=== PATIENT | male | born 1965 | race Two or more races ===

== ENCOUNTER 2021-10-01 08:11 | Outpatient (REF) | payer MEDICARE, MEDICAID, SELFPAY ==
--- NOTE | ~2021-10-01 | XR_ITS ---
EXAMINATION: XR FOOT, RIGHT CLINICAL INFORMATION: Right foot pain. COMPARISON: None TECHNIQUE: AP, lateral, and oblique views of the right foot. FINDINGS: There is no evidence of acute fracture or dislocation. There is some mild narrowing of the distal interphalangeal joints of the 2nd, 3rd, and 4th toes. There is some mild spurring about the 4th metatarsophalangeal joint without joint space narrowing. Small calcaneal spurs are present. No significant soft tissue swelling is appreciated. XR/XR foot RT min 3V IMPRESSION: Mild degenerative change without evidence of acute fracture or dislocation.
[2021-10-01 08:34] LABS: MANUAL DIFF FLAG NO
[2021-10-01 08:54] LABS: Basophils Percent Auto 0.4 % (0-2); Eosinophils Absolute Auto 0.1 X10*3/uL (0.0-0.4); Eosinophils Percent Auto 1.2 % (0-4); Hematocrit 46.3 % (42.0-52.0); Hemoglobin 15.4 g/dl (14.0-18.0); Imm Gran Abs Auto 0.03 X10*3/uL (0.00-0.03); Imm Gran Pct Auto 0.4 % (0.0-0.4); Lymphocytes Percent Auto 36.8 % (20-40); Mean Corpuscular HGB Conc 33.3 g/dl (31.0-36.0); Mean Corpuscular Volume 96.1 fL (80.0-98.0); Mean Platelet Volume 11.6 fL (9.4-12.4); Monocytes Absolute Auto 0.8 X10*3/uL (0.1-1.2); Neutrophils Absolute Auto 4.2 x10*3/uL (2.0-8.3); Neutrophils Percent Auto 51.2 % (45-73); Platelet Count 147 X10*3/uL (160-400); Red Blood Count 4.82 X10*6/uL (4.60-5.80); Red Cell Distribution Width 11.9 % (11.0-16.0); White Blood Count 8.1 X10*3/uL (4.8-10.8)
[2021-10-01 09:01] LABS: Estimated Average Glucose 246 mg/dL; Hemoglobin A1c % 10.2 %
[2021-10-01 09:21] LABS: Alanine Aminotransferase 100 U/L (0-40); Albumin Level 4.3 g/dL (3.5-5.0); Alkaline Phosphatase 62 U/L (39-117); Anion Gap 11 (12-20); Aspartate Amino Transferase 71 U/L (5-37); Bilirubin Total 0.5 mg/dL (0.0-1.0); Blood Urea Nitrogen 14 mg/dL (9-16); Calcium 10.1 mg/dL (8.4-10.2); Carbon Dioxide 28 mmol/L (22-29); Chloride 110 mmol/L (96-108); Cholesterol 215 mg/dL; Estimated Glomerular Filt Rate > 60; Glucose Random 171 mg/dL (60-115); HDL Cholesterol 35 mg/dL; Potassium 4.2 mmol/L (3.3-5.1); Sodium 145 mmol/L (135-145); Triglycerides 420 mg/dL
[2021-10-01 10:43] LABS: Microalbum/Creatinine Ratio Ur 12.5 ug/mg cr
== END 2021-10-01 08:12 | disposition home or self-care (01) ==
LOC: HO.LAB 08:11
PROVIDERS: Visit Provider Internal Medicine
DX: M79.672 Pain in left foot (principal); E11.9 Type 2 diabetes mellitus without complications; E78.1 Pure hyperglyceridemia; R74.01 Elevation of levels of liver transaminase levels
CPT/HCPCS: 36415; 73630; 80053; 80061; 82043; 83036; 85025

== ENCOUNTER 2022-01-12 11:34 | Outpatient (REF) | payer OTHER, SELFPAY ==
--- NOTE | ~2022-01-12 | XR_ITS ---
EXAMINATION: XR BILATERAL KNEES: 4 VIEWS CLINICAL INFORMATION: Osteoarthritis COMPARISON: None TECHNIQUE: Weightbearing AP, lateral and tunnel views of each knee, with a sunrise views of each knee XR/XR knee RT 4V FINDINGS/IMPRESSION: Left knee: No acute fracture or dislocation. Small tricompartmental marginal osteophytes present. Mild medial tibiofemoral compartment joint space narrowing. Articular surfaces are smooth. Quadriceps and patellar tendon enthesopathy. Trace joint effusion. Right knee: No acute fracture or dislocation. Bipartite patella. Prominent marginal osteophytes along the patella. Small marginal osteophytes along the medial lateral tibiofemoral compartments. Quadriceps and patellar tendon enthesopathy. Trace joint effusion.
--- NOTE | ~2022-01-12 | XR_ITS ---
EXAMINATION: XR BILATERAL KNEES: 4 VIEWS CLINICAL INFORMATION: Osteoarthritis COMPARISON: None TECHNIQUE: Weightbearing AP, lateral and tunnel views of each knee, with a sunrise views of each knee XR/XR knee LT 4V FINDINGS/IMPRESSION: Left knee: No acute fracture or dislocation. Small tricompartmental marginal osteophytes present. Mild medial tibiofemoral compartment joint space narrowing. Articular surfaces are smooth. Quadriceps and patellar tendon enthesopathy. Trace joint effusion. Right knee: No acute fracture or dislocation. Bipartite patella. Prominent marginal osteophytes along the patella. Small marginal osteophytes along the medial lateral tibiofemoral compartments. Quadriceps and patellar tendon enthesopathy. Trace joint effusion.
[2022-01-12 12:32] LABS: Estimated Average Glucose 189 mg/dL; Hemoglobin A1c % 8.2 %
[2022-01-12 13:18] LABS: Alanine Aminotransferase 82 U/L (0-40); Albumin Level 4.3 g/dL (3.5-5.0); Alkaline Phosphatase 59 U/L (39-117); Anion Gap 13 (12-20); Aspartate Amino Transferase 82 U/L (5-37); Bilirubin Total 0.5 mg/dL (0.0-1.0); Blood Urea Nitrogen 16 mg/dL (9-16); Calcium 9.8 mg/dL (8.4-10.2); Carbon Dioxide 25 mmol/L (22-29); Chloride 106 mmol/L (96-108); Cholesterol 193 mg/dL; Estimated Glomerular Filt Rate > 60; Glucose Random 195 mg/dL (60-115); HDL Cholesterol 33 mg/dL; Potassium 4.4 mmol/L (3.3-5.1); Sodium 140 mmol/L (135-145); Total Protein 7.3 g/dL (6.5-8.0); Triglycerides 482 mg/dL
== END 2022-01-12 11:35 | disposition home or self-care (01) ==
LOC: HO.XRAY 11:34
PROVIDERS: PCP Internal Medicine; Visit Provider Internal Medicine
DX: M17.0 Bilateral primary osteoarthritis of knee (principal); E11.65 Type 2 diabetes mellitus with hyperglycemia; E78.2 Mixed hyperlipidemia; R74.01 Elevation of levels of liver transaminase levels
CPT/HCPCS: 36415; 73564; 80053; 80061; 83036

== ENCOUNTER 2022-07-14 07:51 | Outpatient (REF) | payer OTHER, SELFPAY ==
[2022-07-14 10:10] LABS: Estimated Average Glucose 169 mg/dL; Hemoglobin A1c % 7.5 %
[2022-07-14 10:30] LABS: Alanine Aminotransferase 74 U/L (0-40); Albumin Level 4.3 g/dL (3.5-5.0); Alkaline Phosphatase 68 U/L (39-117); Anion Gap 15 (12-20); Aspartate Amino Transferase 71 U/L (5-37); Bilirubin Total 0.4 mg/dL (0.0-1.0); Blood Urea Nitrogen 20 mg/dL (9-16); Calcium 9.4 mg/dL (8.4-10.2); Carbon Dioxide 25 mmol/L (22-29); Chloride 111 mmol/L (96-108); Cholesterol 214 mg/dL; Estimated Glomerular Filt Rate 56; Glucose Random 139 mg/dL (60-115); HDL Cholesterol 34 mg/dL; Potassium 4.6 mmol/L (3.3-5.1); Sodium 146 mmol/L (135-145); Total Protein 7.3 g/dL (6.5-8.0); Triglycerides 584 mg/dL
[2022-07-14 10:57] LABS: Vitamin B12 347 pg/mL (200-900)
== END 2022-07-14 07:52 | disposition home or self-care (01) ==
LOC: HO.LAB 07:51
PROVIDERS: PCP Internal Medicine; Visit Provider Internal Medicine
DX: E11.65 Type 2 diabetes mellitus with hyperglycemia (principal); E78.2 Mixed hyperlipidemia; Z68.31 Body mass index [BMI] 31.0-31.9, adult; Z72.0 Tobacco use
CPT/HCPCS: 36415; 80053; 80061; 82607; 83036

== ENCOUNTER 2022-10-06 07:06 | Outpatient (REF) | payer OTHER, SELFPAY ==
[2022-10-06 07:19] LABS: MANUAL DIFF FLAG NO
[2022-10-06 07:27] LABS: Basophils Percent Auto 0.5 % (0-2); Eosinophils Absolute Auto 0.1 X10*3/uL (0.0-0.4); Eosinophils Percent Auto 1.2 % (0-4); Hematocrit 40.3 % (42.0-52.0); Hemoglobin 12.9 g/dl (14.0-18.0); Imm Gran Abs Auto 0.03 X10*3/uL (0.00-0.03); Imm Gran Pct Auto 0.4 % (0.0-0.4); Lymphocytes Absolute Auto 2.8 X10*3/uL (1.2-4.9); Lymphocytes Percent Auto 37.9 % (20-40); Mean Corpuscular Volume 96.9 fL (80.0-98.0); Mean Platelet Volume 11.1 fL (9.4-12.4); Monocytes Absolute Auto 0.7 X10*3/uL (0.1-1.2); Monocytes Percent Auto 9.8 % (2-11); Neutrophils Absolute Auto 3.7 x10*3/uL (2.0-8.3); Neutrophils Percent Auto 50.2 % (45-73); Platelet Count 136 X10*3/uL (160-400); Red Blood Count 4.16 X10*6/uL (4.60-5.80); Red Cell Distribution Width 12.9 % (11.0-16.0); White Blood Count 7.3 X10*3/uL (4.8-10.8)
[2022-10-06 07:57] LABS: Estimated Average Glucose 151 mg/dL; Hemoglobin A1c % 6.9 %
[2022-10-06 08:09] LABS: Alanine Aminotransferase 81 U/L (0-40); Albumin Level 4.1 g/dL (3.5-5.0); Alkaline Phosphatase 63 U/L (39-117); Anion Gap 10 (12-20); Aspartate Amino Transferase 71 U/L (5-37); Bilirubin Total 0.5 mg/dL (0.0-1.0); Blood Urea Nitrogen 18 mg/dL (9-16); Calcium 8.9 mg/dL (8.4-10.2); Carbon Dioxide 25 mmol/L (22-29); Chloride 115 mmol/L (96-108); Cholesterol 182 mg/dL; Estimated Glomerular Filt Rate 58; Glucose Random 110 mg/dL (60-115); HDL Cholesterol 31 mg/dL; Potassium 4.4 mmol/L (3.3-5.1); Prostate Specific Antigen Scr 2.32 ng/mL (<0.05-4.0); Sodium 146 mmol/L (135-145); Total Protein 6.8 g/dL (6.5-8.0); Triglycerides 521 mg/dL
[2022-10-06 10:08] LABS: Creatinine Urine 199.39 mg/dL; Microalbum/Creatinine Ratio Ur 5.5 ug/mg cr
== END 2022-10-06 07:07 | disposition home or self-care (01) ==
LOC: HO.LAB 07:06
PROVIDERS: PCP Internal Medicine; Visit Provider Internal Medicine
DX: Z12.5 Encounter for screening for malignant neoplasm of prostate (principal); E11.65 Type 2 diabetes mellitus with hyperglycemia; E78.2 Mixed hyperlipidemia; M51.16 Intervertebral disc disorders with radiculopathy, lumbar region; Z72.0 Tobacco use
CPT/HCPCS: 36415; 80053; 80061; 82043; 83036; 84153; 85025

== ENCOUNTER 2023-01-04 09:47 | Outpatient (REF) | payer OTHER, SELFPAY ==
[2023-01-04 10:57] LABS: Estimated Average Glucose 197 mg/dL; Hemoglobin A1c % 8.5 %
[2023-01-04 11:28] LABS: Alanine Aminotransferase 122 U/L (0-40); Albumin Level 4.3 g/dL (3.5-5.0); Alkaline Phosphatase 68 U/L (39-117); Anion Gap 15 (12-20); Aspartate Amino Transferase 126 U/L (5-37); Bilirubin Total 0.9 mg/dL (0.0-1.0); Blood Urea Nitrogen 22 mg/dL (9-16); Calcium 9.9 mg/dL (8.4-10.2); Carbon Dioxide 25 mmol/L (22-29); Chloride 108 mmol/L (96-108); Cholesterol 219 mg/dL; Estimated Glomerular Filt Rate > 60; Glucose Random 160 mg/dL (60-115); HDL Cholesterol 39 mg/dL; LDL Cholesterol Calculated 107 mg/dl; Potassium 4.4 mmol/L (3.3-5.1); Sodium 144 mmol/L (135-145); Total Protein 7.1 g/dL (6.5-8.0); Triglycerides 368 mg/dL
[2023-01-04 12:04] LABS: Folate 16.5 ng/mL (> or = 4.0); Thyroid Stimulating Hormone 1.85 uIU/mL (0.32-4.0); Vitamin B12 523 pg/mL (200-900)
== END 2023-01-04 09:48 | disposition home or self-care (01) ==
LOC: HO.10HDL 09:47
PROVIDERS: Visit Provider Internal Medicine
DX: Z00.00 Encounter for general adult medical examination without abnormal findings (principal); E11.9 Type 2 diabetes mellitus without complications; E78.1 Pure hyperglyceridemia; R74.01 Elevation of levels of liver transaminase levels; Z72.0 Tobacco use
CPT/HCPCS: 36415; 80053; 80061; 82607; 82746; 83036; 84443

== ENCOUNTER 2023-04-05 07:17 | Outpatient (REF) | payer OTHER, SELFPAY ==
[2023-04-05 08:06] LABS: Estimated Average Glucose 180 mg/dL; Hemoglobin A1c % 7.9 %
[2023-04-05 08:44] LABS: Alanine Aminotransferase 119 U/L (0-40); Alkaline Phosphatase 75 U/L (39-117); Anion Gap 14 (12-20); Aspartate Amino Transferase 108 U/L (5-37); Bilirubin Total 0.7 mg/dL (0.0-1.0); Blood Urea Nitrogen 18 mg/dL (9-16); Calcium 9.9 mg/dL (8.4-10.2); Carbon Dioxide 23 mmol/L (22-29); Chloride 110 mmol/L (96-108); Cholesterol 207 mg/dL; Estimated Glomerular Filt Rate > 60; Glucose Random 163 mg/dL (60-115); HDL Cholesterol 35 mg/dL; Potassium 4.1 mmol/L (3.3-5.1); Sodium 143 mmol/L (135-145); Total Protein 7.1 g/dL (6.5-8.0); Triglycerides 566 mg/dL
== END 2023-04-05 07:18 | disposition home or self-care (01) ==
LOC: HO.LAB 07:17
PROVIDERS: PCP Internal Medicine; Visit Provider Internal Medicine
DX: E11.65 Type 2 diabetes mellitus with hyperglycemia (principal); E78.2 Mixed hyperlipidemia; G44.209 Tension-type headache, unspecified, not intractable; R74.01 Elevation of levels of liver transaminase levels
CPT/HCPCS: 36415; 80053; 80061; 83036

== ENCOUNTER 2023-07-07 10:33 | Outpatient (REF) | payer OTHER, SELFPAY ==
[2023-07-07 11:29] LABS: Estimated Average Glucose 189 mg/dL; Hemoglobin A1c % 8.2 % (<6.0)
[2023-07-07 11:46] LABS: Alanine Aminotransferase 73 U/L (0-40); Albumin Level 4.2 g/dL (3.5-5.0); Alkaline Phosphatase 76 U/L (39-117); Anion Gap 17 (12-20); Aspartate Amino Transferase 59 U/L (5-37); Bilirubin Total 0.6 mg/dL (0.0-1.0); Blood Urea Nitrogen 15 mg/dL (9-16); Calcium 9.3 mg/dL (8.4-10.2); Carbon Dioxide 22 mmol/L (22-29); Chloride 108 mmol/L (96-108); Cholesterol 191 mg/dL (<200); Estimated Glomerular Filt Rate > 60; Glucose Random 160 mg/dL (60-115); HDL Cholesterol 39 mg/dL (>40); LDL Cholesterol Calculated 79 mg/dL (<100); Sodium 143 mmol/L (135-145); Total Protein 7.3 g/dL (6.5-8.0); Triglycerides 366 mg/dL (<150)
[2023-07-08 03:36] LABS: HBc Num1 0.08 S/CO (0.00-0.79); HBsAGNum1 0.31 S/CO (0.00-0.99); Hepatitis B Core Antibody Nonreactive (Nonreactive); Hepatitis B Surface Antigen Negative (Negative); ~HepC Num1 0.06 S/CO (0.00-0.79); ~Hepatitis B Surface Antibody NONREACTIVE (Nonreactive); ~Hepatitis C Antibody Nonreactive (Nonreactive)
== END 2023-07-07 10:34 | disposition home or self-care (01) ==
LOC: HO.10HDL 10:33
PROVIDERS: Visit Provider Internal Medicine
DX: E11.65 Type 2 diabetes mellitus with hyperglycemia (principal); E78.1 Pure hyperglyceridemia; R74.01 Elevation of levels of liver transaminase levels; Z72.0 Tobacco use
CPT/HCPCS: 36415; 80053; 80061; 83036; 86704; 86706; 86803; 87340

== ENCOUNTER 2023-10-04 06:32 | Outpatient (REF) | payer OTHER, SELFPAY ==
[2023-10-04 07:36] LABS: Estimated Average Glucose 189 mg/dL; Hemoglobin A1c % 8.2 % (<6.0)
[2023-10-04 07:45] LABS: Alanine Aminotransferase 140 U/L (0-40); Albumin Level 4.3 g/dL (3.5-5.0); Alkaline Phosphatase 86 U/L (39-117); Anion Gap 14 (12-20); Aspartate Amino Transferase 147 U/L (5-37); Bilirubin Total 0.5 mg/dL (0.0-1.0); Blood Urea Nitrogen 19 mg/dL (9-16); Calcium 10.1 mg/dL (8.4-10.2); Carbon Dioxide 24 mmol/L (22-29); Chloride 107 mmol/L (96-108); Cholesterol 252 mg/dL (<200); Estimated Glomerular Filt Rate > 60; Glucose Random 220 mg/dL (60-115); HDL Cholesterol 37 mg/dL (>40); Potassium 4.6 mmol/L (3.3-5.1); Sodium 140 mmol/L (135-145); Total Protein 7.6 g/dL (6.5-8.0); Triglycerides 903 mg/dL (<150)
[2023-10-04 08:18] LABS: Prostate Specific Antigen 2.88 ng/mL (<0.05-4.0)
[2023-10-04 08:45] LABS: Creatinine Urine 34.94 mg/dL; Microalbumin Urine < 5.0 mg/L
== END 2023-10-04 06:33 | disposition home or self-care (01) ==
LOC: HO.LAB 06:32
PROVIDERS: PCP Internal Medicine; Visit Provider Internal Medicine
DX: E11.65 Type 2 diabetes mellitus with hyperglycemia (principal); E78.1 Pure hyperglyceridemia; N40.0 Benign prostatic hyperplasia without lower urinary tract symptoms; R74.01 Elevation of levels of liver transaminase levels; Z12.5 Encounter for screening for malignant neoplasm of prostate; Z72.0 Tobacco use
CPT/HCPCS: 36415; 80053; 80061; 82570; 83036; 84153

== ENCOUNTER 2024-01-03 08:13 | Outpatient (REF) | payer OTHER, SELFPAY ==
[2024-01-03 09:19] LABS: Alanine Aminotransferase 100 U/L (0-40); Albumin Level 4.6 g/dL (3.5-5.0); Alkaline Phosphatase 79 U/L (39-117); Anion Gap 12 (12-20); Aspartate Amino Transferase 45 U/L (5-37); Bilirubin Total 0.5 mg/dL (0.0-1.0); Blood Urea Nitrogen 23 mg/dL (9-16); Carbon Dioxide 26 mmol/L (22-29); Chloride 106 mmol/L (96-108); Cholesterol 206 mg/dL (<200); Estimated Glomerular Filt Rate > 60; Glucose Random 272 mg/dL (60-115); HDL Cholesterol 36 mg/dL (>40); LDL Cholesterol Calculated 109 mg/dL (<100); Potassium 4.3 mmol/L (3.3-5.1); Sodium 140 mmol/L (135-145); Total Protein 7.8 g/dL (6.5-8.0); Triglycerides 309 mg/dL (<150)
[2024-01-03 09:20] LABS: Estimated Average Glucose 223 mg/dL; Hemoglobin A1c % 9.4 % (<6.0)
== END 2024-01-03 08:14 | disposition home or self-care (01) ==
LOC: HO.LAB 08:13
PROVIDERS: PCP Internal Medicine; Visit Provider Internal Medicine
DX: E11.65 Type 2 diabetes mellitus with hyperglycemia (principal); E78.1 Pure hyperglyceridemia; R74.01 Elevation of levels of liver transaminase levels; F10.988 Alcohol use, unspecified with other alcohol-induced disorder
CPT/HCPCS: 36415; 80053; 80061; 83036

== ENCOUNTER 2024-04-29 07:05 | Outpatient (REF) | payer OTHER, SELFPAY ==
[2024-04-29 08:07] LABS: Estimated Average Glucose 200 mg/dL; Hemoglobin A1c % 8.6 % (<6.0)
[2024-04-29 08:33] LABS: Alanine Aminotransferase 103 U/L (0-40); Albumin Level 4.1 g/dL (3.5-5.0); Alkaline Phosphatase 69 U/L (39-117); Anion Gap 14 (12-20); Aspartate Amino Transferase 57 U/L (5-37); Bilirubin Total 0.6 mg/dL (0.0-1.0); Blood Urea Nitrogen 20 mg/dL (9-16); Calcium 9.3 mg/dL (8.4-10.2); Carbon Dioxide 25 mmol/L (22-29); Chloride 110 mmol/L (96-108); Estimated Glomerular Filt Rate > 60; Glucose Random 160 mg/dL (60-115); Potassium 3.9 mmol/L (3.3-5.1); Sodium 145 mmol/L (135-145); Total Protein 6.9 g/dL (6.5-8.0)
== END 2024-04-29 07:06 | disposition home or self-care (01) ==
LOC: HO.LAB 07:05
PROVIDERS: PCP Internal Medicine; Visit Provider Internal Medicine
DX: E11.65 Type 2 diabetes mellitus with hyperglycemia (principal); E78.00 Pure hypercholesterolemia, unspecified; K76.0 Fatty (change of) liver, not elsewhere classified; R93.89 Abnormal findings on diagnostic imaging of other specified body structures
CPT/HCPCS: 36415; 80053; 83036

== ENCOUNTER 2024-08-07 06:51 | Outpatient (REF) | payer OTHER, SELFPAY ==
[2024-08-07 07:37] LABS: Estimated Average Glucose 192 mg/dL; Hemoglobin A1C 260.0283 umol/L; Hemoglobin A1c % 8.3 % (<6.0); Total Hemoglobin (HGBA1C) 3893.3039 umol/L
[2024-08-07 07:53] LABS: Alanine Aminotransferase 143 U/L (0-40); Albumin Level 4.5 g/dL (3.5-5.0); Alkaline Phosphatase 55 U/L (39-117); Anion Gap 15 (12-20); Aspartate Amino Transferase 112 U/L (5-37); Bilirubin Total 0.6 mg/dL (0.0-1.0); Blood Urea Nitrogen 20 mg/dL (9-16); Calcium 9.9 mg/dL (8.4-10.2); Carbon Dioxide 24 mmol/L (22-29); Chloride 108 mmol/L (96-108); Cholesterol 150 mg/dL (<200); Estimated Glomerular Filt Rate > 60; Glucose Random 154 mg/dL (60-115); HDL Cholesterol 37 mg/dL (>40); LDL Cholesterol Calculated 70 mg/dL (<100); Potassium 4.1 mmol/L (3.3-5.1); Sodium 143 mmol/L (135-145); Total Protein 7.5 g/dL (6.5-8.0); Triglycerides 219 mg/dL (<150)
== END 2024-08-07 06:52 | disposition home or self-care (01) ==
LOC: HO.LAB 06:51
PROVIDERS: PCP Internal Medicine; Visit Provider Internal Medicine
DX: E11.641 Type 2 diabetes mellitus with hypoglycemia with coma (principal); I10 Essential (primary) hypertension; I70.313 Atherosclerosis of unspecified type of bypass graft(s) of the extremities with intermittent claudication, bilateral legs; R74.01 Elevation of levels of liver transaminase levels; Z72.0 Tobacco use
CPT/HCPCS: 36415; 80053; 80061; 83036

== ENCOUNTER 2024-11-27 09:26 | Outpatient (REF) | payer OTHER, SELFPAY ==
--- OUTSIDE RECORDS SUMMARY | 2024-11-27 09:47 | XMS_ITS | Clinical Summary ---
Author Organization [employer] [facility] Address [address] [place] [address] Care Team Providers Care Manager Reimbursement Name Role Phone Andie Meeks MD Primary Care Provider Allergies Active Allergy Reactions Criticality Noted Date Comments Penicillins 07/27/2017 Medications No known medications Active Problems Problem Noted Date Diagnosed Date Chronic left shoulder pain 07/27/2017 Adhesive capsulitis of left shoulder 07/27/2017 Partial tear of left rotator cuff 07/27/2017 Family History Medical History Relation Name Comments Diabetes Father Heart disease Father Hypertension Father Diabetes Mother Hypertension Mother Relation Name Status Comments Father Mother Social History Tobacco Use Types Packs/Day Years Used Date Smoking Tobacco: Never Assessed Sex and Gender Information Value Date Recorded Sex Assigned at Not on file Gender Identity Not on file Sexual Orientation Not on file Last Filed Vital Signs Vital Sign Reading Time Taken Comments Blood Pressure - - Pulse - - Temperature - - Respiratory Rate - - Oxygen Saturation - - Inhaled Oxygen Concentration - - Weight 70.3 kg (155 lb) 07/27/2017 8:48 AM EDT Height 165.1 cm (5' 5 ) 07/27/2017 8:48 AM EDT Body Mass Index 25.79 07/27/2017 8:48 AM EDT Plan of Treatment Health Maintenance Due Date Last Done Comments Hepatitis C Screening 1964 COVID-19 Vaccine (#1) 1964 Depression Screening 1976 Preventative Health Evaluation 1982 DTap / Tdap / Td (1 - Tdap) 1983 Colon Cancer Screening (Colonoscopy) 2009 Shingrix-Zoster Vaccine (1 of 2) 2014 Influenza Vaccine (#1) 2024 RSV Adult > 60+ Yrs or Pregn ant (1 - 1-dose 75+ series) 2039 Hepatitis B Vaccines Aged Out No long er eligible based on patient's age to complete this topic Pneumococcal Vaccine Aged Out No long er eligible based on patient's age to complete this topic RSV Ped < 20 months Aged Out No longe r eligible based on patient's age to complete this topic Care Teams Manager Reimbursement Relationship Specialty Start Date End Date Andie Meeks MD [address] [facility] [address] [place] [phone] PCP - General Internal Medicine 07/04/17
[2024-11-27 10:27] LABS: Estimated Average Glucose 197 mg/dL; Hemoglobin A1C 260.3125 umol/L; Hemoglobin A1c % 8.5 % (<6.0); Total Hemoglobin (HGBA1C) 3767.8995 umol/L
[2024-11-27 10:46] LABS: Alanine Aminotransferase 165 U/L (0-40); Albumin Level 3.9 g/dL (3.5-5.0); Alkaline Phosphatase 71 U/L (39-117); Anion Gap 11 (12-20); Aspartate Amino Transferase 129 U/L (5-37); Bilirubin Total 0.3 mg/dL (0.0-1.0); Blood Urea Nitrogen 14 mg/dL (9-16); Calcium 9.6 mg/dL (8.4-10.2); Carbon Dioxide 27 mmol/L (22-29); Chloride 109 mmol/L (96-108); Estimated Glomerular Filt Rate > 60; Glucose Random 159 mg/dL (60-115); Potassium 4.8 mmol/L (3.3-5.1); Sodium 142 mmol/L (135-145); Total Protein 7.9 g/dL (6.5-8.0)
[2024-11-27 10:53] LABS: Prostate Specific Antigen Scr 3.49 ng/mL (<0.05-4.0)
[2024-11-27 10:59] LABS: Creatinine Urine 50.28 mg/dL; Microalbum/Creatinine Ratio Ur 19.8 ug/mg cr (<30)
== END 2024-11-27 09:27 | disposition home or self-care (01) ==
LOC: HO.10HDL 09:26
PROVIDERS: Visit Provider Internal Medicine
DX: E11.65 Type 2 diabetes mellitus with hyperglycemia (principal); I10 Essential (primary) hypertension; I70.313 Atherosclerosis of unspecified type of bypass graft(s) of the extremities with intermittent claudication, bilateral legs; N40.0 Benign prostatic hyperplasia without lower urinary tract symptoms; R74.01 Elevation of levels of liver transaminase levels; Z72.0 Tobacco use; Z12.5 Encounter for screening for malignant neoplasm of prostate
CPT/HCPCS: 36415; 80053; 82043; 82570; 83036; 84153

== ENCOUNTER 2025-02-18 07:55 | Outpatient (REF) | payer OTHER, SELFPAY ==
--- OUTSIDE RECORDS SUMMARY | 2025-02-18 07:58 | XMS_ITS | Clinical Summary ---
Author Organization [employer] [facility] Address [address] [place] [address] Care Team Providers Care Mule Tender Name Role Phone Andie Meeks MD Primary [...] age to complete this topic Care Teams Mule Tender Relationship Specialty Start Date End Date Andie Meeks MD [address] [facility] [address] [place] [phone] PCP - General Internal Medicine 07/04/17
[2025-02-18 09:30] LABS: Estimated Average Glucose 180 mg/dL; Hemoglobin A1C 243.5673 umol/L; Hemoglobin A1c % 7.9 % (<6.0)
[2025-02-18 10:34] LABS: Albumin Level 4.4 g/dL (3.5-5.0); Anion Gap 16 (12-20); Aspartate Amino Transferase 119 U/L (5-37); Bilirubin Total 0.4 mg/dL (0.0-1.0); Blood Urea Nitrogen 17 mg/dL (9-16); Calcium 9.9 mg/dL (8.4-10.2); Carbon Dioxide 26 mmol/L (22-29); Chloride 106 mmol/L (96-108); Estimated Glomerular Filt Rate > 60; Glucose Random 206 mg/dL (60-115); Potassium 4.8 mmol/L (3.3-5.1); Sodium 143 mmol/L (135-145); Total Protein 7.3 g/dL (6.5-8.0)
[2025-02-18 12:52] LABS: Alanine Aminotransferase 136 U/L (0-40); Alkaline Phosphatase 66 U/L (39-117)
== END 2025-02-18 07:56 | disposition home or self-care (01) ==
LOC: HO.LAB 07:55
PROVIDERS: PCP Internal Medicine; Visit Provider Internal Medicine
DX: E11.9 Type 2 diabetes mellitus without complications (principal); I10 Essential (primary) hypertension; I70.313 Atherosclerosis of unspecified type of bypass graft(s) of the extremities with intermittent claudication, bilateral legs; R74.01 Elevation of levels of liver transaminase levels; Z72.0 Tobacco use
CPT/HCPCS: 36415; 80053; 83036

== ENCOUNTER 2025-05-15 09:00 | Outpatient (REF) | payer OTHER, SELFPAY ==
--- OUTSIDE RECORDS SUMMARY | 2025-05-15 09:22 | XMS_ITS | Clinical Summary ---
Author Organization [employer] [facility] Address [address] [place] [address] Care Team Providers Care Group Fitness Assistant Department Head Name Role Phone Andie Meeks MD Primary [...] (1 of 2) 2014 Influenza Vaccine (#1) 2025 RSV Adult > 60+ Yrs or Pregn [...] age to complete this topic Care Teams Group Fitness Assistant Department Head Relationship Specialty Start Date End Date Andie Meeks MD [address] [facility] [address] [place] [phone] PCP - General Internal Medicine 07/04/17
--- OUTSIDE RECORDS SUMMARY | 2025-05-15 09:22 | XMS_ITS | Patient Health Record ---
Author Organization [facility] Address [address] [place] [address] Care Team Providers Care Artist'S Representative Name Role Phone Andie Meeks Primary Care Provider UnavailJames Lopez [phone] Allergies Allergen (clinical drug ingredient) Drug/Non Drug Allergy documented on EMR Reaction Allergy Type Onset Date Status penicillamine Penicillamine Unknown Drug Allergy Active Reason For Referral No Information Plan Of Treatment No Information Insurance Providers Payer Name Payer Address Payer Phone Subscriber Number Group Number Insured Name Patient Relationship to Insured Coverage Start Date Coverage End Date MEDICARE OF [place] [address] [place] [id number] [phone] [id number] DANIS GRAY Self - patient is the insured MEDICAID OF [facility] [address] [place] [address] [id number] DANIS GRAY Self - patient is the insured Medical (General) History Medical History History ICD Code elevated liver funtion tests hyperlipidemia substance abuse alcohol abuse erectioe dysfunction Surgical History Surgery Date(Month/Year) ear surgery
--- OUTSIDE RECORDS SUMMARY | 2025-05-15 09:22 | XMS_ITS | Clinical Summary ---
Author Organization [facility] [address] [facility] Address [address] [place] [address] Phone Care Team Providers Care Sample Builder Name Role Phone Andie Meeks MD Primary Care Provider [phone] Allergies Active Allergy Reactions Criticality Noted Date Comments Nicotine Rash Low 03/05/2025 Penicillins Low 03/05/2025 Sertraline Other Low 03/05/2025 Spaced Out Encounters Date Type Department Care Team Description 04/18/2025 Telephone Pulmonology - [place] [facility] [address] [place] [phone] Milli Chavez [place] insurance (Name on Insurance Correction) 04/17/2025 9:47 AM EDT - 04/17/2025 11:59 PM EDT Hospital Encounter [facility] CT Scan [address] [place] [phone] Encounter for screening for lung cancer; Cigarette smoker Discharge Disposition: Home or Self Care 04/17/2025 9:30 AM EDT Office Visit Lung Screening Program - [place] [address] [phone] Pamella Bustillo PA Tobacco abuse (Primary Dx); Encounter for screening for malignant neoplasm of lung in current smoker with 30 pack year history or greater from Last 3 Months Surgical History Surgery Date Site/Laterality Comments CATARACT EXTRACTION Bilateral SHOULDER ARTHROSCOPY 03/19/2021 Right ROTATOR CUFF REPAIR Right Medical History Medical History Date Comments Depression Osteoarthritis of hip left Diabetes mellitus (CMS/HCC V24, CMS/HCC V28) Dyslipidemia Family History Medical History Relation Name Comments Alcohol abuse Father Diabetes Mother Hyperlipidemia Mother Hypertension Mother Lung cancer Neg Hx Relation Name Status Comments Father Mother Social History Tobacco Use Types Packs/Day Years Used Date Smoking Tobacco: Every Day Cigarettes 1.5 40.6 Started: 1984 Tobacco Cessation:Ready to Q uit: Not Asked; Counseling Given: Not Answered Sex and Gender Information Value Date Recorded Sex Assigned at Not on file Legal Sex Male 8:27 AM EST Gender Identity Not on file Sexual Orientation Not on file Obstetrics History Last Filed Vital Signs Vital Sign Reading Time Taken Comments Blood Pressure - - Pulse - - Temperature 36.6 C (97.9 F) 04/17/2025 9:15 AM EDT Respiratory Rate - - Oxygen Saturation - - Inhaled Oxygen Concentration - - Weight - - Height - - Body Mass Index - - Plan of Treatment Health Maintenance Due Date Last Done Comments DTaP,Tdap,and Td Vaccines (1 - Tdap) 1983 Pneumococcal Vaccine: 50+ Ye ars (1 of 2 - PCV) 1983 Zoster Vaccines (1 of 2) 2014 COVID-19 Vaccine (1 - 2023-2 5 season) 2024 Depression Screening 10/09/2024 Cholesterol Screening (Lipid Panel) 03/01/2025 Colorectal Cancer Screening: Colonoscopy 03/01/2025 HIV Screening 03/01/2025 Hepatitis C Screening 03/01/2025 Medicare Annual Wellness Visit 03/01/2025 Social Influencers of Health Screening 03/01/2025 Influenza Vaccine (#1) 2025 Lung Cancer Screening (Low D ose CT) 04/17/2026 04/17/2025 RSV Immunization Adult Patie nts (1 - 1-dose 75+ series) 2039 HIB Vaccines Aged Out No longer eligi ble based on patient's age to complete this topic HPV Vaccines Aged Out No longer eligi ble based on patient's age to complete this topic Hepatitis A Vaccines Aged Out No long er eligible based on patient's age to complete this topic Hepatitis B Vaccines Aged Out No long er eligible based on patient's age to complete this topic IPV Vaccines Aged Out No longer eligi ble based on patient's age to complete this topic MMR Vaccines Aged Out No longer eligi ble based on patient's age to complete this topic Meningococcal ACWY Vaccine Aged Out N o longer eligible based on patient's age to complete this topic Meningococcal B Vaccine Aged Out No l onger eligible based on patient's age to complete this topic RSV Immunization Patients Un sara 20 months Aged Out No longer eligible b ased on patient's age to complete this topic Varicella Vaccines Aged Out No longer eligible based on patient's age to complete this topic Procedures Procedure Name Priority Date/Time Associated Diagnosis Comments CT LUNG SCREENING Routine 04/17/2025 9:5 8 AM EDT Encounter for screening for lung cancer Cigarette smoker from Last 3 Months Results * CT Lung Screening (04/17/2025 9:58 AM EDT) Anatomical Region Laterality Modality Chest Computed Tomogra phy 04/17/2025 12:1 1 PM EDT Impressions 04/17/2025 12:14 PM EDT No suspicious pulmonary nodules. Lung RADS 1, recommend low-dose screening chest CT in 12 months -------- FINAL REPORT -------- Dictated By: Clarisse Feng Dictated Date: 04/17/2025 12:11 ET Assigned Physician: Clarisse Feng Reviewed and Electronically Signed By: Clarisse Feng Signed Date: 04/17/2025 12:14 ET Workstation ID: [id number] Transcribed By: Self Edit Transcribed Date: 04/17/2025 12:11 ET Narrative 04/17/2025 12:14 PM EDT INDICATION: Currently smoking with 35 pack-year smoking history FINDINGS: Low-dose CT scan of the chest obtained as a lung cancer screening study. Scanner: [employer] speed 64 slice VCT Dose reduction technique: ASIR (Adaptive statistical iterative reconstruction) and/or AEC (automated exposure control) Dose: total exam DLP 114 mGY per cm COMPARISON: No prior studies are available for comparison. Lung: Mild emphysematous changes. No infiltrates or effusions. Mild subpleural fibrotic changes noted along the medial right lower lobe adjacent to thoracic osteophytosis. No suspicious pulmonary nodules or masses. Lymph nodes: No thoracic lymphadenopathy. Mediastinum: Trachea and esophagus are within normal limits. Heart normal in size and shape without pericardial effusion. Mediastinal vascular structures are normal in course and caliber. Bony structures: Within normal limits for the patient's age. Procedure Note Clarisse Feng MD - 04/17/2025 INDICATION: Currently smoking with 35 pack-year smoking history FINDINGS: Low-dose CT scan of the chest obtained as a lung cancerscreening study. Scanner: [employer] speed 64 slice VCT Dose reduction technique: ASIR (Adaptive statistical iterativereconstruction) and/or AEC (automated exposure control) Dose: total exam DLP 114 mGY per cm COMPARISON: No prior studies are available for comparison. Lung: Mild emphysematous changes. No infiltrates or effusions. Mildsubpleural fibrotic changes noted along the medial right lower lobeadjacent to thoracic osteophytosis. No suspicious pulmonary nodules or masses. Lymph nodes: No thoracic lymphadenopathy. Mediastinum: Trachea and esophagus are within normal limits. Heart normalin size and shape without pericardial effusion. Mediastinal vascularstructures are normal in course and caliber. Bony structures: Within normal limits for the patient's age. IMPRESSION: No suspicious pulmonary nodules. Lung RADS 1, recommend low-dose screening chest CT in 12 months -------- FINAL REPORT -------- Dictated By: Clarisse Feng Dictated Date: 04/17/2025 12:11 ET Assigned Physician: Clarisse Feng Reviewed and Electronically Signed By: Clarisse Feng Signed Date: 04/17/2025 12:14 ET Workstation ID: [id number] Transcribed By: Self Edit Transcribed Date: 04/17/2025 12:11 ET Willie Beard MD IM CT PROCEDURES Final Result from Last 3 Months Insurance [facility] MEDICARE Member Subscriber Plan / Payer (Ef fective 2022-Present) Name:STEVO MERCEDES Relation to Subscriber:Self Name:Stevo Mercedes Payer ID:[id number] Group ID:[id number] Type:Not on file Address: [address] [place] [phone] Care Teams Sample Builder Relationship Specialty Start Date End Date Andie Meeks MD [address] [place] [address] [place] [address] PCP - General Internal Medicine 07/04/17
[2025-05-15 10:00] LABS: Hemoglobin A1C 306.4376 umol/L; Total Hemoglobin (HGBA1C) 3939.5867 umol/L
[2025-05-15 10:58] LABS: Albumin Level 4.6 g/dL (3.5-5.0); Alkaline Phosphatase 62 U/L (39-117); Anion Gap 13 (12-20); Aspartate Amino Transferase 115 U/L (5-37); Blood Urea Nitrogen 22 mg/dL (9-16); Calcium 10.1 mg/dL (8.4-10.2); Carbon Dioxide 25 mmol/L (22-29); Chloride 108 mmol/L (96-108); Estimated Glomerular Filt Rate > 60; Potassium 4.2 mmol/L (3.3-5.1); Sodium 142 mmol/L (135-145); Total Protein 7.6 g/dL (6.5-8.0)
[2025-05-15 11:28] LABS: Alanine Aminotransferase 133 U/L (0-40)
== END 2025-05-15 09:01 | disposition home or self-care (01) ==
LOC: HO.LAB 09:00
PROVIDERS: PCP Internal Medicine; Visit Provider Internal Medicine
DX: R74.01 Elevation of levels of liver transaminase levels (principal); E11.65 Type 2 diabetes mellitus with hyperglycemia; I10 Essential (primary) hypertension; Z72.0 Tobacco use
CPT/HCPCS: 36415; 80053; 83036

== ENCOUNTER 2025-08-12 07:07 | Outpatient (REF) | payer OTHER, SELFPAY ==
--- OUTSIDE RECORDS SUMMARY | 2025-08-12 07:11 | XMS_ITS | Patient Health Record ---
Author Organization [facility] Address [address] [place] [address] Care Team Providers Care Services Program Manager Name Role Phone Andie Meeks Primary Care Provider UnavailJames Lopez [phone] Allergies Allergen (clinical drug ingredient) Drug/Non Drug Allergy documented on EMR Reaction Allergy Type Onset Date Status penicillamine Penicillamine Unknown Drug Allergy Active Reason For Referral No Information Plan Of Treatment No Information Insurance Providers Payer Name Payer Address Payer Phone Subscriber Number Group Number Insured Name Patient Relationship to Insured Coverage Start Date Coverage End Date MEDICARE OF [place] [address] [place] [id number] [phone] [id number] DANIS GRAY Self - patient is the insured MEDICAID OF [facility] [address] [place] [address] [id number] DANIS GRAY Self - patient is the insured Medical (General) History Medical History History ICD Code elevated liver funtion tests hyperlipidemia substance abuse alcohol abuse erectioe dysfunction Surgical History Surgery Date(Month/Year) ear surgery
--- OUTSIDE RECORDS SUMMARY | 2025-08-12 07:11 | XMS_ITS | Clinical Summary ---
Author Organization [employer] [facility] Address [address] [place] [address] Care Team Providers Care Compliance Monitor Name Role Phone Andie Meeks MD Primary [...] age to complete this topic Care Teams Compliance Monitor Relationship Specialty Start Date End Date Andie Meeks MD [address] [facility] [address] [place] [phone] PCP - General Internal Medicine 07/04/17
--- OUTSIDE RECORDS SUMMARY | 2025-08-12 07:11 | XMS_ITS | Clinical Summary ---
Author Organization [facility] [address] [facility] [facility] Address [address] [place] [address] Phone Care Team Providers Care Long Wall Shear Operator Name Role Phone Andie Meeks MD Primary Care Provider [phone] Allergies Active Allergy Reactions Criticality Noted Date Comments Nicotine Rash Low 03/05/2025 Penicillins Low 03/05/2025 Sertraline Other Low 03/05/2025 Spaced Out Surgical History Surgery Date Site/Laterality Comments CATARACT EXTRACTION Bilateral SHOULDER ARTHROSCOPY 03/19/2021 Right ROTATOR CUFF REPAIR Right Medical History Medical History Date Comments Depression Osteoarthritis of hip left Diabetes mellitus (CMS/[facility] V24, CMS/[facility] V28) Dyslipidemia Family History Medical History Relation Name Comments Alcohol abuse Father Diabetes Mother Hyperlipidemia Mother Hypertension Mother Lung cancer Neg Hx Relation Name Status Comments Father Mother Social History Tobacco Use Types Packs/Day Years Used Date Smoking Tobacco: Every Day Cigarettes 1.5 40.8 Started: 1984 Tobacco Cessation:Ready to Q uit: [...] Health Maintenance Due Date Last Done Comments Colorectal Cancer Screening: Colonoscopy 1964 DTaP,Tdap,and Td Vaccines (1 - Tdap) 1983 Pneumococcal Vaccine: 50+ Ye ars (1 of 2 - PCV) 1983 Zoster Vaccines (1 of 2) 2014 Depression Screening 10/09/2024 Cholesterol Screening (Lipid Panel) 03/01/2025 HIV Screening 03/01/2025 Hepatitis C Screening 03/01/2025 Medicare Annual Wellness Visit 03/01/2025 Social Influencers of Health Screening 03/01/2025 COVID-19 Vaccine (1 - 2023-2 5 season) 2025 Influenza Vaccine (#1) 2025 Lung Cancer Screening [...] cancer Cigarette smoker from Last 3 Months or Most Recently Relevant to Health Maintenance Results * CT Lung Screening (04/17/2025 9:58 [...] Signed Date: 04/17/2025 12:14 ET Workstation ID: [id number] Transcribed By: Self Edit Transcribed Date: 04/17/2025 12:11 ET Narrative 04/17/2025 12:14 PM EDT INDICATION: Currently smoking with 35 pack-year smoking history FINDINGS: Low-dose CT scan of the chest obtained as a lung cancer screening study. Scanner: [employer] speed 64 slice VCT Dose reduction technique: [...] obtained as a lung cancerscreening study. Scanner: [employer] Bright speed 64 slice VCT Dose reduction technique: [...] Signed Date: 04/17/2025 12:14 ET Workstation ID: [id number] Transcribed By: Self Edit Transcribed Date: 04/17/2025 12:11 ET Willie Beard MD IMG CT PROCEDURES Final Result from Last 3 Months or Most Recently Relevant to Health Maintenance Insurance [facility] MEDICARE Member Subscriber Plan / Payer (Ef fective 2022-Present) Name:STEVO MERCEDES Relation to Subscriber:Self Name:Stevo Mercedes Payer ID:[id number] Group ID:[id number] Type:Not on file Address: [place] [address] [place] [phone] Care Teams Long Wall Shear Operator Relationship Specialty Start Date End Date Andie Meeks MD [address] [place] [address] [place] [address] PCP - General Internal Medicine 07/04/17
--- OUTSIDE RECORDS SUMMARY | 2025-08-12 07:11 | XMS_ITS | Data Portability ---
Author Organization [facility], [facility] Address [address] [place] [address] Care Team Providers Care Business Continuity Global Director Name Role Phone [facility] Primary Care Provider Assessment Encounter Date Assessment Date Assessment LastModified by Organization Details LastModified Time 07/03/2024 07/03/2024 I am seeing the patient today under the supervision of Dr Blue who was available but who did not see the patient. [email or web address] Not available 07/03/2024 06:36:24 09/23/2024 09/23/2024 I am seeing the patient today under the supervision of Dr Blue who was available but who did not see the patient. [email or web address] Not available 09/23/2024 07:26:10 12/25/2024 12/25/2024 I am seeing the patient today under the supervision of Dr Blue who was available but who did not see the patient. qian Not available 12/25/2024 09:29:57 03/26/2025 03/26/2025 I am seeing the patient today under the supervision of Dr Blue who was available but who did not see the patient. qian Not available 03/26/2025 09:58:20 06/30/2025 06/30/2025 I am seeing the patient today under the supervision of Dr. Kowalski who was available but who did not see the patient. HPI: Patient is here today for reevaluation of left hip pain. Has been evaluated by my colleague and diagnosed with osteoarthritis of the hip. Here today for intra-articular hip injection. No new injury or symptom changes. Review of systems: As noted patient intake. Physical exam:The patient is well appearing and in no apparent distress. Alert and oriented x3. Gait is antalgic on the left. Examination of the hip reveals no effusion, erythema, or warmth. No point tenderness over the greater trochanter. Forward flexion to 90. External rotation to 60 internal rotation to 0. + impingement, - straight leg raise. Calf soft and nontender. 5/5 strength with hip flexion/extension. X-ray: 2 views were ordered obtained and independently reviewed at [facility] today. Radiographs demonstrate osteoarthritis of the left hip. No significant advancement from previous radiographs. No evidence of AVN, no acute fracture appreciated. No lytic or blastic lesions noted. Assessment: Osteoarthritis of the left hip Plan: I explained the nature of the diagnosis with the patient and its treatment options both conservative and surgical. Conservative measures were discussed at length including oral antiinflammatories, physical therapy, bracing and injection therapies. Please see the procedure note for further documentation about the injection performed today. Follow-up as needed for re-evaluation, sooner if any difficulty. The patient understands and agrees with the plan. They know to call if they have any further questions or concerns regarding their symptoms, or to follow up sooner if needed. [email or web address] Not available 06/30/2025 08:02:04 Plan of Treatment Reminders Order Date Submit Date Provider Last Modified By Organization Details Last Modified Time Details Appointments RECHECK 15 2024 08:45A Jimmy Alcantara PA-C Not available Not available Not available Lab None recorded . Referral None recorded . Procedures None recorded . Surgeries None recorded . Imaging XR, hip + pelvis, unilater al, 2 or 3 view - rm 205, BL Hips. 3v 2024 025 [email or web address], [address], [address], [place], [address], 07/09/2025 10:01:19 Medication Orders None recorded . Patient TargetsNo targets recorded. Patient InstructionsNo instructions recorded. Reason for Referral None Reported. Results Created Date Observation Date Name Description Value Unit Range Abnormal Flag Note LastModifiedBy Organization Detail LastModifiedTime 06/08/20 24 02/28/2021 imagi ng/di agnos tic resul t No observ ation record ed. [email or web address] Not Available 05/11 04:40:34 06/08/20 24 01/14/2021 imagi ng/di agnos tic resul t No observ ation record ed. [email or web address] Not Available 05/11 04:40:41 06/08/20 24 01/14/2021 imagi ng/di agnos tic resul t No observ ation record ed. [email or web address] Not Available 05/11 04:40:42 06/08/20 24 01/14/2021 imagi ng/di agnos tic resul t No observ ation record ed. [email or web address] Not Available 05/11 04:40:42 06/08/20 24 11/12/2022 imagi ng/di agnos tic resul t No observ ation record ed. [email or web address] Not Available 05/11 04:41:08 06/30/20 25 06/30/2025 XR, hip + pelvi s, unila teral , 2 or 3 view http:/ [email or web address] ?Encry pted=s hAaTro YD8dLq bEUv6g %2BXZw aYqtaq 0bqfl% 2Fg9IQ a4ajBk vP9nXo QUaueC m3YtLR FvZlgJ JJ8mAn HZtai3 6b6457 AC0Klb HqBV6a jKiQtr MwF INTERFACE [address], [place], [address], 06/30/2025 08:54:18 06/30/20 25 06/30/2025 XR, hip + pelvi s, unila teral , 2 or 3 view http:/ [email or web address] ?Encry pted=s hAaTro YD8dLq bEUv6g %2BXZw aYqtaq 0bqfl% 2Fg9IQ a4ajBk vP9nXo QUaueC m3YtLR FvZlgJ JJ8mAn HZtai3 3s6087 AC0Klb HqBV6a jKiQtr MwF INTERFACE [facility] [address], [place], [address], 06/30/2025 08:54:21 Result Notes Documentation Provider Name and Address Organization Details Recorded Time Xr, Hip + Pelvis, Unilateral, 2 Or 3 View : [email or web address] Encrypted=otUzQejMT3xFlxT Uv6g%9GVFumCobtw2onkw%2Fg 7DJq1dtJsaW1vMnVUqzgXk2Vt XBUwLqyEUU4lGqNSden41v768 3ER4WdnBrNF8mwZbDrkJoA Not Available [facility] 06/30/2025 08:54: 19 Xr, Hip + Pelvis, Unilateral, 2 Or 3 View : [email or web address] Encrypted=bfMmUajMV4zHxjW Uv6g%6GTXklUsnom0xdsq%2Fg 5JMs3jpSitJ1yBfMRbcqRo9Oz SYIwNhnBXX3pIySUltc08c309 0QG7RngCoBX3ecIwXmwAuY Not Available [facility] 06/30/2025 08:54: 22 Problems Name Problem SNOMED Code Status Onset Date Resolution Date Notes Provider Name and Address Organization Details Recorded Time Osteoarthr itis of left hip joint 9543024201539 08 Active 2023 Junaid Madison PA-C [address], [place], [address] , [facility] 4 08:03:15 Osteoarthr itis of right hip joint 2253144520346 07 Active 2023 Not Available [facility] 10:26:29 Problem Notes None recorded. Procedures Surgical History Date Name Laterality Status Provider Name and Address Organization Details Recorded Time 06/30/2025 [facility] Benedict Jessica PA-C [address], [place], [address], [facility] 06/30/2025 08:01:32 03/26/2025 [facility] completed Junaid Madison PA-C [address], [place], [address], [facility] 03/26/2025 09:58:15 12/25/2024 [facility] completed Junaid Madison PA-C [address], [place], [address], [facility] 12/25/2024 09:29:53 09/23/2024 [facility] completed Junaid Madison PA-C [address], [place], [address], [facility] 09/23/2024 08:12:01 07/03/2024 [facility] completed Junaid Madison PA-C [address], [place], [address], [facility] 07/03/2024 08:18:34 04/03/2024 [facility] completed Junaid Madison PA-C [address], [place], [address], [facility] 04/03/2024 09:24:33 Imaging Results None recorded. Procedure Notes None recorded. Medical Equipment None Reported. Allergies Allergen ID Allergen Name Allergen Category Reaction Reaction Severity Criticality Documentation Date Start Date Code Code System Note Provider Name and Address Organization Details Recorded Time 22128 Product containin g penicilli n (product) medicatio n Not available Not available Not available 12/11/20232021 60794 8001 SNOMED Not Available [facility] 10:54:06 Medications Name Sig Start Date Stop Date Status Note LastModified by Organization Details LastModified Time atorvastati n 80 mg tablet TAKE 1 TABLET BY MOUTH AT BEDTIME active Not Available Not Available No t Available glipizide ER 10 mg tablet, extended release 24 hr TAKE 1 TABLET BY MOUTH EVERY DAY active Not Available Not Available No t Available aspirin 81 mg tablet,brenda yed release TAKE 1 TABLET BY MOUTH EVERY DAY active Not Available Not Available No t Available losartan 100 mg-hydrochl orothiazide 25 mg tablet TAKE 1 TABLET BY MOUTH DAILY active Not Available Not Available No t Available amitriptyli ne 25 mg tablet TAKE 1 TABLET BY MOUTH AT BEDTIME active Not Available Not Available No t Available metformin 1,000 mg tablet TAKE 1 TABLET BY MOUTH TWICE DAILY active Not Available Not Available No t Available nicotine 21 mg/24 hr daily transdermal patch APPLY ONE PATCH ONTO THE SKIN DAILY active Not Available Not Available No t Available losartan 100 mg tablet TAKE 1 TABLET BY MOUTH DAILY active Not Available Not Available No t Available naproxen 500 mg tablet TAKE 1 TABLET BY MOUTH TWICE DAILY active Not Available Not Available No t Available rosuvastati n 40 mg tablet TAKE 1 TABLET BY MOUTH DAILY active Not Available Not Available No t Available bupropion HCl XL 150 mg 24 hr tablet, extended release TAKE 1 TABLET BY MOUTH DAILY active Not Available Not Available No t Available Janumet 50 mg-1,000 mg tablet active Not Available Not Available Not Available oxycodone HCl-oxycodo ne-ASA as directed 1-2 TABLETS EVERY [address] WHILE ON THIS MEDICATIO N 04/03 completed Statu s: 'Curr ent'; Not Available Not Available Not Available OneTouch Verio test strips TEST TWICE DAILY active Not Available Not Available No t Available Jardiance 25 mg tablet TAKE 1 TABLET BY MOUTH EVERY MORNING active Not Available Not Available No t Available Trulicity 0.75 mg/0.5 mL subcutaneou s pen injector INJECT 0.75 MG SUBCUTANE LOUSLY WEEKLY active Not Available Not Available No t Available OneTouch Verio Flex Meter CHECK BLOOD SUGAR active Not Available Not Available No t Available OneTouch Delica Plus Lancet 30 gauge TEST TWICE DAILY active Not Available Not Available No t Available Vitals Date Recorded Body height Body mass index (BMI) Body weight Provider Name and Address Organization Details Last Updated DateTime 12/25/2024 165.1 cm 30 kg/m2 25915.63 g Cayden Oneil [facility] 12/25/2024 09:13:33 Date Recorded Body height Body mass index (BMI) Body weight Provider Name and Address Organization Details Last Updated DateTime 03/26/2025 165.1 cm 30 kg/m2 60655.63 g Cayden Oneil [facility] 03/26/2025 09:45:43 Date Recorded Body height Body mass index (BMI) Body weight Provider Name and Address Organization Details Last Updated DateTime 06/30/2025 165.1 cm 30 kg/m2 85137.63 g JASPER Calinyenni [facility] 06/30/2025 08:45:13 Date Recorded Body height Body mass index (BMI) Body weight Provider Name and Address Organization Details Last Updated DateTime 07/03/2024 165.1 cm 30 kg/m2 00249.63 g Cayden Luke [facility] 07/03/2024 08:14:31 Date Recorded Body height Body mass index (BMI) Body weight Provider Name and Address Organization Details Last Updated DateTime 09/23/2024 165.1 cm 30 kg/m2 00716.63 g Cayden Luke [facility] 09/23/2024 08:08:18 Social History None recorded. Functional Status None recorded. Mental Status None recorded. Family History Nothing Reported. Medical History Condition Response Allergies/Hayfever N Coronary Artery Disease N Breathing or lung disorders N Anxiety/Depression Y Emphysema N Thyroid Problems N COPD N Pacemaker N Kidney/Bladder Problems N Anemia N Vascular Disease Y Heart Trouble Y Gastrointestinal Disease N Heart Attack ([place]) N Cholesterol Y Diabetes Y Autoimmune disease N Inflammatory Joint disease Y Bleeding Disorder N Orthotics N Seizures/Epilepsy N Arthritis Y Blood Clot N AIDS/HIV N Congestive Heart Failure (CHF) N Acid Reflux (GERD) Y Stroke N Asthma N Circulation Problems N Peripheral Vascular Disease N Sleep Apnea N Hepatitis N Heart Disease N Rheumatoid Arthritis N Pulmonary Embolism N Arrhythmia Y Headaches N Hypertension Y Osteoporosis N Past Encounters Encounter ID Performer Location Encounter Start Date Encounter Closed Date Diagnosis/Indication Diagnosis SNOMED-CT Code Diagnosis ICD10 Code Diagnosis IMO Codes Diagnosis Note [id number] LENA Antonio [address] [place] [address] 04/03/2024 09:15:05 04/30/2024 11:49:28 Osteoarthritis of left hip joint 7558459109 22889 M16.12 [id number] LENA Antonio [address] [place] [address] 07/03/2024 08:09:56 07/22/2024 13:22:48 Osteoarthritis of right hip joint 7970287821 59855 M16.11 [id number] LENA Antonio [address] [place] [address] 09/23/2024 07:51:12 10/15/2024 12:02:04 Osteoarthritis of left hip joint 0675523440 23910 M16.12 [id number] Junaid Madison PA-C [facility] [address] [place] [address] 12/25/2024 09:03:11 01/08/2025 14:26:31 Osteoarthritis of left hip joint 4509214521 81359 M16.12 [id number] LENA [facility] [place] [address] [place] [address] 03/26/2025 09:41:28 04/04/2025 07:52:59 Osteoarthritis of left hip joint 9100192336 13910 M16.12 [id number] Benedict Jessica PA-C [facility] [place] [address] [place] [address] 06/30/2025 08:28:05 07/09/2025 10:01:19 Osteoarthritis of left hip joint 8071116614 54317 M16.12 Health Concerns Section Related Observation LastModified by Organization Detai ls LastModified Time None Recorded Concern Status LastModified by Organization Details LastModified Time None Recorded Advance Directives Directive None Recorded Payers Insurance Date Sequence Insurance Name Policy Number Policy Gomez Covered Member ID Gomez Member ID Guarantor Name 07/09/2025 1 [facility] - DOS ON OR AFTER 2023 - ONE CARE (MEDICARE REPLACEMENT/ADV ANTAGE - HMO) Stevo Dangelo [id number] Stevo Walden
[2025-08-12 08:24] LABS: Alanine Aminotransferase 91 U/L (0-40); Albumin Level 4.8 g/dL (3.5-5.0); Alkaline Phosphatase 60 U/L (39-117); Anion Gap 11 (12-20); Aspartate Amino Transferase 78 U/L (5-37); Blood Urea Nitrogen 16 mg/dL (9-16); Calcium 9.6 mg/dL (8.4-10.2); Carbon Dioxide 27 mmol/L (22-29); Chloride 111 mmol/L (96-108); Cholesterol 143 mg/dL (<200); Estimated Glomerular Filt Rate > 60; HDL Cholesterol 39 mg/dL (>40); Potassium 4.2 mmol/L (3.3-5.1); Sodium 145 mmol/L (135-145); Total Protein 7.8 g/dL (6.5-8.0); Triglycerides 176 mg/dL (<150)
== END 2025-08-12 07:08 | disposition home or self-care (01) ==
LOC: HO.LAB 07:07
PROVIDERS: PCP Internal Medicine; Visit Provider Internal Medicine
DX: M48.061 Spinal stenosis, lumbar region without neurogenic claudication (principal); N40.0 Benign prostatic hyperplasia without lower urinary tract symptoms; E11.65 Type 2 diabetes mellitus with hyperglycemia; F41.8 Other specified anxiety disorders; Z12.5 Encounter for screening for malignant neoplasm of prostate; Z72.0 Tobacco use
CPT/HCPCS: 36415; 80053; 80061; 82043; 82570; 83036; 84153